=== PATIENT | female | born 2000 ===

== ENCOUNTER 2023-07-14 14:33 | Inpatient (IN) | payer BC, MEDICAID ==
[~2023-07-14] VITALS: Ht 157.5 cm; Wt 76.4 kg
[2023-07-22] VITALS (19 sets, daily range): BP systolic 101–133; BP diastolic 56–84; PULSE 69–113; TEMP 98.2–98.9
--- NOTE | 2023-07-22 05:40 | NUR ---
PT OREINTED TO ROOM AND CHANGED INTO GOWN. NO COMPLAINT OF VB, LOF, OR PAINFUL CX. FEELING REGULAR MOVMENT. VS WNL. FHT CATAGORY 1 TRACING. FOB PRESENT.
[2023-07-22] MEDS ORDERED: LEXAPRO 10MG10 MG PO (06:34)
[2023-07-22] MEDS ORDERED: PEPCID AC 10MG10 MG PO (06:34)
[2023-07-22] MEDS ORDERED: PRENATAL TABLET PO (06:35)
[2023-07-22 06:36] LABS: BASO % 0.2 % (0.0-2.0); EOS # 0.1 K/mm3 (0.0-0.7); EOS % 0.7 % (0.0-4.0); GRAN # 5.5 K/mm3 (1.4-6.5); GRAN % 64.3 % (42.2-75.2); HEMOGLOBIN 12.3 g/dl (12.5-16.0); LYMPH # 2.2 K/mm3 (1.2-3.4); LYMPH % 25.2 % (20.0-51.0); MEAN CELL VOLUME 90 fl (80.0-100.0); MEAN CORPUSCULAR HEMOGLOBIN 31 pg (27-31); MEAN CORPUSCULAR HGB CONC 34 g/dl (33.0-37.0); MEAN PLATELET VOLUME 9.6 fl (7.4-10.4); MONO # 0.8 K/mm3 (0.1-0.6); MONO % 9.1 % (1.7-9.3); PLATELET COUNT 262 K/mm3 (130-400); RED BLOOD COUNT 4.02 M/mm3 (4.10-5.30); REDCELL DISTRIBUTION WIDTH-CV 12.1 % (11.5-14.5)
[2023-07-22 06:37] LABS: HEMATOCRIT 36.3 % (37.0-47.0)
[2023-07-23 03:42] VITALS: BP 115/87; PULSE 79; TEMP 97.7
[2023-07-23 07:12] VITALS: BP 125/71; PULSE 99; TEMP 97.8
--- NOTE | 2023-07-23 09:07 | NUR ---
Initial visit; Parents thanked L[employer] for looking in on them and offering congratulations and God's blessings for the of their daughter. L[employer] T[employer]er thanked family for choosing [facility].
--- NOTE | 2023-07-23 10:17 | NUR ---
Shift assessment performed this morning. Pt is A&Ox4. Pain scored at 3/10 on abdomen and states that it is tolerable. Lower abdominal incision is CDI and abdominal binder is in place. Pt denies any other discomfort or pain. Fundal height checked below umbilicus with mild soreness towards the Right lower quadrant. Pt expressess that baby is having frequent feedings on each breast. Soreness on right nipple was reported and lanolin cream was offered. Pt education was provided regarding proper latching to prevent soreness and cracking on nipple area, along with the use of lanolin cream. Pt verbalized understanding. Pt reports voiding properly, but having difficulty passing gas, and verbalized understanding regarding notify primary nurse to request her stool softener if needed. Pt educated on maintaining proper hydration and report any needs or concerns. IV site on R hand was DC per orders with tip intact. Provider updated orders for pt to take a shower. Bed on lowest position. Belongings and call light within reach.
[2023-07-23 15:46] VITALS: BP 118/68; PULSE 97; TEMP 98.5
[2023-07-24] MEDS ORDERED: MOTRIN 800800 MG/TAB PO (07:21)
[2023-07-24] MEDS ORDERED: PERCOCET 325 MG1 TA2 PO (07:22)
[2023-07-24 07:30] VITALS: BP 131/75; PULSE 101; TEMP 98
== END 2023-07-24 14:00 | disposition home or self-care (01) | DRG 788 ==
LOC: OB 07-22 05:26
PROVIDERS: ADMIT Obstetrics & Gynecology
PROC: 10D00Z1 Extraction of Products of Conception, Low, Open Approach (ICD-10-PCS; principal; 2023-07-22)
DX: O32.1XX0 Maternal care for breech presentation, not applicable or unspecified (principal); Z3A.39 39 weeks gestation of pregnancy; Z37.0 Single live birth; O99.344 Other mental disorders complicating childbirth; F41.9 Anxiety disorder, unspecified; F32.A Depression, unspecified; Z23 Encounter for immunization
CPT/HCPCS: J0171; J0665; J0690; J1885; J2175; J2405; J2590; J2791; J7120